=== PATIENT | male | born 1995 ===

== ENCOUNTER 2022-02-17 12:03 | Emergency (ER) | payer OTHER ==
[~2022-02-17] VITALS: Ht 177.8 cm; Wt 94.2 kg
== END 2022-02-17 13:00 | disposition home or self-care (01) ==
LOC: ED 12:03
PROC: 0HQ0XZZ Repair Scalp Skin, External Approach (ICD-10-PCS; principal; 2022-02-17)
DX: S01.01XA Laceration without foreign body of scalp, initial encounter (principal); W22.8XXA Striking against or struck by other objects, initial encounter; Z23 Encounter for immunization
CPT/HCPCS: 12001; 90471; 90715; 99283-25